=== PATIENT | female | born 1980 | race Two or more races ===

== ENCOUNTER → 2017-10-09 | Emergency (ER) | payer MEDICAID, OTHER ==
[~2017-10-09] VITALS: Ht 152.4 cm; Wt 56.7 kg
[~2017-10-09] MED LIST: DIPHENHYDRAMINE25 M1 ORAL; PREDNISONE20 MG ORAL; RANITIDINE HCL150 MG ORAL; Sodium Chloride 500ML 500 ML IV ONE; Solu-MEDROL 125mg Inj IVP ONE
[2017-10-09 15:00] VITALS: BP 119/73
[2017-10-09 16:40] VITALS: BP 119/73
--- NOTE | 2017-10-09 22:29 | Emergency Room Report ---
History of Present Illness General Chief Complaint: Allergic Reaction Source: Patient Present Illness HPI 37-year-old female presents ED for allergic reaction. Patient states she has multiple food allergies and ate tacos today but does not know what she ate that caused a reaction. Noted some throat tightness and hives. Patient was given Benadryl by EMS. Patient states she feels better. States she no longer has throat tightness. Denies any shortness of breath. Denies any chest pain. No other aggravating relieving factors. Denies any other associated symptoms Allergies: Coded Allergies: No Known Allergies (Unverified , 10/09/17) Patient History Past Medical History: none Past Surgical History: none Pertinent Family History: none Social History: Denies: smoking, alcohol use, drug use Last Menstrual Period: 09/29/17 Now: No Immunizations: UTD Reviewed Nursing Documentation: PMH: Agreed, PSxH: Agreed Nursing Documentation-PMH Past Medical History: No Stated History Review of Systems All Other Systems: negative except mentioned in HPI Physical Exam Vital Signs Date Time Temp Pulse Resp B/P (MAP) Pulse Ox O2 Delivery O2 Flow Rate FiO2 10/09/17 14:20 98.8 106 18 128/85 100 Room Air Sp02 EP Interpretation: reviewed, normal General Appearance: no apparent distress, alert, GCS 15, non-toxic Head: normocephalic, atraumatic Eyes: bilateral eye normal inspection, bilateral eye PERRL ENT: hearing grossly normal, normal pharynx, no angioedema, normal voice Neck: full range of motion, supple/symm/no masses Respiratory: chest non-tender, lungs clear, normal breath sounds, speaking full sentences Cardiovascular #1: regular rate, rhythm, no edema Cardiovascular #2: 2+ carotid (R), 2+ carotid (L), 2+ radial (R), 2+ radial (L) , 2+ dorsalis pedis (R), 2+ dorsalis pedis (L) Gastrointestinal: normal bowel sounds, non tender, soft, non-distended, no guarding, no rebound Rectal: deferred Genitourinary: normal inspection, no CVA tenderness Musculoskeletal: back normal, gait/station normal, normal range of motion, non- tender Neurologic: alert, oriented x3, responsive, motor strength/tone normal, sensory intact, speech normal Psychiatric: judgement/insight normal, memory normal, mood/affect normal, no suicidal/homicidal ideation Reflexes: 3+ bicep (R), 3+ bicep (L), 3+ tricep (R), 3+ tricep (L), 3+ knee (R) , 3+ knee (L) Skin: normal color, no rash, warm/dry, well hydrated Lymphatic: no adenopathy Medical Decision Making Diagnostic Impression: Primary Impression: Allergic reaction Qualified Codes: T78.40XA - Allergy, unspecified, initial encounter ER Course Hospital Course 37-year-old female presents ED with throat tightness and hives after eating. Improved with Benadryl Differential diagnoses include: allergic reaction, angioedema Clinical course Patient placed on stretcher. radiation monitor. After initial history and physical, I ordered Solu-Medrol, Zantac, IV fluids Upon reassessment patient states she feels better. patient is safe for discharge i. I feel this is a highly complex case requiring extensive working including EKG/Rhythm strip, Xray/CT/US, Blood/urine lab work, repeat exams while in ED, and administration of strong opiates/narcotics for pain control, admission to hospital or close patient follow up. Diagnosis - allergic reaction Stable and discharged to home with prescriptions for Zantac, prednisone, Benadryl. Followup with PMD. Return to ED if symptoms recur or worsen Last Vital Signs Date Time Temp Pulse Resp B/P (MAP) Pulse Ox O2 Delivery O2 Flow Rate FiO2 10/09/17 16:40 98.8 85 22 119/73 99 Room Air Status: improved Disposition: HOME, SELF-CARE Condition: Stable Scripts Ranitidine Hcl* (ZANTAC*) 150 Mg Tablet 150 MG ORAL TWICE A DAY, #30 TAB Prov: RIVKA FRASER M.D. 10/09/17 Diphenhydramine Hcl* (DIPHENHYDRAMINE HCL*) 25 Mg Capsule 25 MG ORAL Q6H Y for Itching, #30 CAP 0 Refills Prov: RIVKA FRASER M.D. 10/09/17 Prednisone* (PREDNISONE*) 20 Mg Tablet 40 MG ORAL DAILY, #10 TAB Prov: RIVKA FRASER M.D. 10/09/17 Referrals: [facility]ERR[facility] (PCP) Patient Instructions: Allergies RIVKA FRASER M.D. Oct 09, 2017 22:29
== END | disposition home or self-care (01) ==
LOC: EDBD 14:29 → EMR 16:15
DX: T78.1XXA Other adverse food reactions, not elsewhere classified, initial encounter (principal)
CPT/HCPCS: 96374; 96375; 99284; J2930; J7040; S0028

== ENCOUNTER 2018-11-01 11:45 | Emergency (ER) | payer OTHER ==
[~2018-11-01] VITALS: Ht 160 cm; Wt 61.2 kg
[~2018-11-01 11:45] MED LIST changes: -Sodium Chloride 500ML 500 ML IV ONE; -Solu-MEDROL 125mg Inj IVP ONE
[2018-11-01] MEDS ORDERED: ASPIRIN81 MG ORAL (11:48)
[2018-11-01 11:50] VITALS: BP 118/78
--- NOTE | 2018-11-01 11:50 | NUR ---
ED Nurse Note: Pt PUMA from street where she pulled over her car due to discomfort and weakness after having meal with mayonaise by 1000 this morning which she is allergic to. Pt c/o abdominal discomfort 3/10 in calm manner. Ambulatory, no hives or rash noted on skin, AAO x4.
[2018-11-01] MEDS ORDERED: Solu-MEDROL 125mg Inj IVP ONE (12:00)
[2018-11-01] MEDS ORDERED: LORazepam Inj 2mg/ml 1ml IV ONE (12:00)
[2018-11-01] MEDS ORDERED: Sodium Chloride 500ML 500 ML IV ONE (12:00)
--- NOTE | 2018-11-01 12:21 | Emergency Room Report ---
History of Present Illness General Chief Complaint: Allergic Reaction Source: Patient Present Illness HPI Patient presents with complaints of an allergic reaction patient reports that she was given a food From a fresh foods technician which she feels likely had mayoyoel on it she had reported to the Person not to have this as she has severe allergies An hour after patient started having palpitations sensation of swelling of her throat And mild rash patient has had severe allergies in the past Patient was given epinephrine and Benadryl by paramedics reports that she feels some palpitations however feels better otherwise Allergies: Uncoded Allergies: EGGS (Allergy, Unknown, 11/01/18) MAYONAISE (Allergy, Unknown, 11/01/18) Patient History Past Medical History: see triage record Pertinent Family History: none Reviewed Nursing Documentation: PMH: Agreed; PSxH: Agreed Nursing Documentation-PMH Past Medical History: No History, Except For History Of Psychiatric Problem: Yes - Anxiety Hx Cerebrovascular Accident: Yes - "small stroke" per patient Review of Systems All Other Systems: negative except mentioned in HPI Physical Exam Vital Signs Date Time Temp Pulse Resp B/P (MAP) Pulse Ox O2 Delivery O2 Flow Rate FiO2 11/01/18 11:49 98.2 103 18 140/90 100 Room Air Sp02 EP Interpretation: reviewed, normal General Appearance: no apparent distress, mild distress - Mildly anxious Head: normocephalic, atraumatic Eyes: bilateral eye PERRL, bilateral eye EOMI ENT: hearing grossly normal, normal pharynx, TMs + canals normal, uvula midline Neck: full range of motion, supple, no meningismus, no bony tend Respiratory: lungs clear, normal breath sounds, no rhonchi, no respiratory distress, no retraction, no accessory muscle use Cardiovascular #1: normal peripheral pulses, regular rate, rhythm, no edema, no gallop, no JVD, no murmur Gastrointestinal: normal bowel sounds, non tender, soft, no mass, no organomegaly, non-distended, no guarding, no hernia, no pulsatile mass, no rebound Musculoskeletal: normal inspection Neurologic: oriented x3, responsive, mold yard supervisor III-XII nml as tested, motor strength/ tone normal, sensory intact Psychiatric: mood/affect normal Skin: normal color, no rash, warm/dry, palpation normal Lymphatic: normal inspection, no adenopathy Medical Decision Making Diagnostic Impression: Primary Impression: Allergic reaction ER Course Given the patient's history and exam given the presentation patient has IV established placed on threat monitoring analyst and provided with acute intervention Patient continues to do well on repeat evaluation breathing is improved patient does not have any swelling sensation in the throat and is stable for close outpatient follow-up I did prescribe the patient epinephrine as well as needed Rhythm Strip Diag. Results EP Interpretation: yes Rate: 80 Rhythm: NSR, no PVC's, no ectopy Last Vital Signs Date Time Temp Pulse Resp B/P (MAP) Pulse Ox O2 Delivery O2 Flow Rate FiO2 11/01/18 11:49 98.2 103 18 140/90 100 Room Air Status: improved Disposition: HOME, SELF-CARE Condition: Improved Scripts Epinephrine (Epipen 2-Kar) 0.3 Mg/0.3 Ml Auto.injct 0.3 MG IM PRN, #1 EA Prov: Monty Holliday DO 11/01/18 Diphenhydramine Hcl* (BENADRYL*) 25 Mg Capsule 25 MG ORAL Q6H PRN for Itching, #20 CAP Prov: Monty Holliday DO 11/01/18 Methylprednisolone (Methylprednisolone*) 4MG Dspk 4 MG ORAL DIRECTED for 6 Days, #21 EA 0 Refills Day 1: Two tablets before breakfast, one after lunch, one after dinner, and two at bedtime. If started late in the day, take all six tablets at once or divide into two or three doses, unless otherwise directed by prescriber. Day 2: One tablet before breakfast, one after lunch, one after dinner, and two at bedtime Day 3: One tablet before breakfast, one after lunch, one after dinner, and one at bedtime Day 4: One tablet before breakfast, one after lunch, and one at bedtime Day 5: One tablet before breakfast and one at bedtime Day 6: One tablet before breakfast Prov: Monty Holliday DO 11/01/18 Additional Instructions: Patient is provided with the discharge instructions notified to follow up with primary doctor in the next 2-3 days otherwise return to the er with any worsening symptoms. Please note that this report is being documented using [employer] technology. This can lead to erroneous entry secondary to incorrect interpretation by the dictating instrument. Monty Holliday DO Nov 01, 2018 12:21
[2018-11-01] MEDS ORDERED: BENADRYL25 MG ORAL (13:14)
[2018-11-01] MEDS ORDERED: MEDROL DOSEPAK4 MG ORAL (13:14)
[2018-11-01] MEDS ORDERED: EPIPEN 2-P0.3 MG/0.3 IM (13:14)
[2018-11-01 13:37] VITALS: BP 124/78
--- NOTE | 2018-11-01 13:39 | NUR ---
ED Nurse Note: Pt was cleared to be discharged by ERMD. Pt stable and verbalized resolved pain. Pt was instructed on allergy management. Pt received prescriptions and discharge instruction. Pt verbalized understanding on discharge instruction. ID band and IV removed.
== END 2018-11-01 13:40 | disposition home or self-care (01) ==
LOC: EDBD 11:45 → EMR 12:44
DX: T78.40XA Allergy, unspecified, initial encounter (principal); X58.XXXA Exposure to other specified factors, initial encounter; F41.9 Anxiety disorder, unspecified; Z91.012 Allergy to eggs; Z91.018 Allergy to other foods
CPT/HCPCS: 96374; 96375; 99284; J2930; S0028